=== PATIENT | female | born 1950 | race Caucasian/White ===

== ENCOUNTER 2017-08-27 10:06 | Day surgery (SDC) | payer MEDICARE, BC ==
[~2017-08-27] VITALS: Ht 154.9 cm; Wt 63.0 kg
[2017-08-27] VITALS (7 sets, daily range): BP systolic 109–140; BP diastolic 64–85
[~2017-08-27 10:06] MED LIST: BENA5TAB2 PO; ceFAZolin inj. 2,000 MG in normal saline 100ml IV soln 100 ML IV ONE; famotidine 20mg tablet PO ONE; ringers solution, lacted 1,000 ML IV SCH
[2017-08-27] MEDS ORDERED: LIDOcaine 1% 30ml preserv. free vial ONE (10:19)
[2017-08-27] MEDS ORDERED: heparin 10,000 units/1 ML INJ ONE (10:19)
[2017-08-27] MEDS ORDERED: LIDOcaine 1% (10mg/ml) 2ml vial ONE (10:21)
[2017-08-27] MEDS ORDERED: midazolam 2 mg/2 ml injection ONE (11:08)
[2017-08-27] MEDS ORDERED: fentaNYL/PF 50MCG/1 ML 2ML syringe ONE (11:08)
[2017-08-27] MEDS ORDERED: propofol inj 20 ML IV ONE (11:10)
[2017-08-27] MEDS ORDERED: LIDOcaine 1%/PF (10mg/ml) 5ml vial ONE (11:10)
[2017-08-27] MEDS ORDERED: sevoflurane 250ml liquid IH ONE (11:15)
[2017-08-27 11:21] LABS: ISTAT CREATININE 5.3 mg/dL (0.6-1.1); ISTAT HGB 13.3 g/dl (12.0-16.0); ISTAT IONIZED CALCIUM 1.11 mmol/L (1.03-1.32); ISTAT K 4.1 mmol/L (3.5-5.1); POC BUN/CREATININE RATIO 6.2 (6.6-38.0)
[2017-08-27] MEDS ORDERED: ringers solution, lacted 1,000 ML IV ONE (11:36)
[2017-08-27] MEDS ORDERED: labetalol 20mg/4ml (5mg/ml) syringe IV PRN (11:40)
[2017-08-27] MEDS ORDERED: ondansetron/PF 4mg/2ml inj IV PRN (11:40)
[2017-08-27] MEDS ORDERED: meperidine/PF 50mg/ml syringe IV ONE (11:40)
[2017-08-27] MEDS ORDERED: hydrALAZINE 20mg/ml inj. IV PRN (11:40)
[2017-08-27] MEDS ORDERED: fentaNYL/PF 50MCG/1 ML 2ML syringe IV ONE ×2 (11:40)
[2017-08-27] MEDS ORDERED: meperidine/PF 50mg/ml syringe IV PRN ×2 (11:40)
[2017-08-27] MEDS ORDERED: ondansetron/PF 4mg/2ml inj ONE (11:43)
[2017-08-27] MEDS ORDERED: CHOL500044 PO (11:52)
[2017-08-27] MEDS ORDERED: PHO667C PO (11:52)
== END 2017-08-27 12:46 | disposition home or self-care (01) ==
LOC: PAS 10:06
PROVIDERS: ATTEND Surgery
DX: T82.590A Other mechanical complication of surgically created arteriovenous fistula, initial encounter (principal); I12.0 Hypertensive chronic kidney disease with stage 5 chronic kidney disease or end stage renal disease; N18.6 End stage renal disease; Z90.49 Acquired absence of other specified parts of digestive tract; Z93.3 Colostomy status; Z88.5 Allergy status to narcotic agent; Z98.890 Other specified postprocedural states; Z99.2 Dependence on renal dialysis; Z79.899 Other long term (current) drug therapy
CPT/HCPCS: 37607; 80047; 93005; J0690; J1644; J2001; J2250; J2405; J2704; J3010; J3490; J7030; J7120; A7000

== ENCOUNTER 2018-04-23 17:45 | Inpatient (IN) | payer MEDICARE, BC ==
[~2018-04-23] VITALS: Ht 165.1 cm; Wt 63.1 kg
[~2018-04-23 17:45] MED LIST changes: -BENA5TAB2 PO; +BENA5TAB7 PO; +CHOL500044 PO; +PHO667C PO; -ceFAZolin inj. 2,000 MG in normal saline 100ml IV soln 100 ML IV ONE; -famotidine 20mg tablet PO ONE; +oseltamivir 30mg capsule PO ONE; -ringers solution, lacted 1,000 ML IV SCH
[2018-04-23] MEDS ORDERED: normal saline 1000ML IV soln IV ONE (18:35)
[2018-04-23 18:46] LABS: BASOPHILS % (AUTO) 0.2 % (0-1); HEMOGLOBIN 9.5 g/dl (12.0-16.0); LYMPHOCYTES # (AUTO) 0.3 X10'3 (1.1-4.8)
[2018-04-23] MEDS ORDERED: acetaminophen 325mg tablet PO STA ×2 (18:54→20:14)
[2018-04-23] MEDS ORDERED: azithromycin/NS 500mg/250ml 250 ML IV ONE ×2 (18:55→20:30)
[2018-04-23] MEDS ORDERED: ipratropium/albuterol 3ml nebule NEB ONE (18:55)
[2018-04-23] MEDS ORDERED: CefTRIAXone 2gm/D5W 50ml 50 ML IV ONE ×2 (18:55→20:30)
[2018-04-23 18:59] LABS: ALANINE AMINOTRANSFERASE 30 U/L (12-78); ALBUMIN 2.9 G/DL (3.4-5.0); ALBUMIN/GLOBULIN RATIO 0.8 (1.1-1.5); ALKALINE PHOSPHATASE 59 IU/L (46-116); ANION GAP 10 (8-16); ASPARTATE AMINO TRANSFERASE 20 U/L (10-37); BILIRUBIN,TOTAL 0.7 MG/DL (0.1-1.0); BLOOD UREA NITROGEN 16 MG/DL (7-18); BUN/CREATININE RATIO 3.8 (6.6-38.0); CHLORIDE 100 MMOL/L (99-107); CREATININE 4.18 MG/DL (0.40-0.90); GLUCOSE 124 MG/DL (70-104); POTASSIUM 3.5 MMOL/L (3.5-5.1); SODIUM 142 MMOL/L (135-145); TOTAL PROTEIN 6.7 G/DL (6.4-8.2); eGFR 11 ML/MIN
[2018-04-23 19:16] LABS: EOSINOPHILS % (AUTO) 0.1 % (0-6); HEMATOCRIT 28.7 % (35.0-45.0); LYMPHOCYTES % (AUTO) 6.8 % (21-51); MEAN CORPUSCULAR HEMOGLOBIN 32.3 PG (27.0-31.0); MEAN CORPUSCULAR HGB CONC 33.1 % (33.0-36.5); MEAN CORPUSCULAR VOLUME 97.7 FL (78-98); MONOCYTES # (AUTO) 0.4 X10'3 (0-0.9); MONOCYTES % (AUTO) 8.5 % (2-12); NEUTROPHILS # (AUTO) 4.2 X10'3 (1.8-7.7); NEUTROPHILS % (AUTO) 84.4 % (42-75); PLATELET COUNT 100 X10'3 (140-440); RED BLOOD COUNT 2.93 X10'6 (4.20-5.60); RED CELL DISTRIBUTION WIDTH 14.6 % (11.5-14.5); WHITE BLOOD COUNT 4.9 X10'3 (4.5-11.0)
[2018-04-23] MEDS ORDERED: ondansetron/PF 4mg/2ml inj IV ONE (20:15)
[2018-04-23] MEDS ORDERED: oseltamivir phos 75mg capsule PO ONE (20:30)
[2018-04-23] MEDS ORDERED: levoFLOXACIN-Levaquin 750MG/D5 150 ML IV ONE (20:35)
[2018-04-23] MEDS ORDERED: vancomycin/NS 1 GM ADD-VANTAGE 250 ML IV ONE (20:35)
[2018-04-23] MEDS ORDERED: RANI150T8 PO (22:09)
--- NOTE | 2018-04-23 22:14 | NUR ---
pt given sandwhich, jello, applesauce and water. She is requesting to take her Phoslo as she normally does with meals. advised pt to wait and we will address her MAR and given her meds from pharmacy. PA aware and entering meds now.
[2018-04-23] MEDS ORDERED: acetaminophen 650mg rectal suppository RC PRN (22:20)
[2018-04-23] MEDS ORDERED: ondansetron/PF 4mg/2ml inj IV PRN (22:20)
[2018-04-23] MEDS ORDERED: acetaminophen 325mg tablet PO PRN ×2 (22:20)
[2018-04-23] MEDS ORDERED: ipratropium/albuterol 3ml nebule NEB PRN (22:20)
[2018-04-23] MEDS: calcium acetate 667mg (PhosLO) capsule PO SCH (22:21)
[2018-04-23] MEDS ORDERED: oseltamivir 30mg capsule PO SCH (22:40)
[2018-04-23 22:55] VITALS: BP 100/53
[2018-04-24 06:00] VITALS: BP 89/49
--- NOTE | 2018-04-24 06:30 | NUR ---
I have received patient report from Candice TESFAYE
--- NOTE | 2018-04-24 06:45 | NUR ---
Problems reprioritized. Patient report given, questions answered & plan of care reviewed with Suzanna TESFAYE. Patient resting putting oxygen back on.
[2018-04-24] MEDS: famotidine 20mg tablet PO SCH ×2 (07:20→19:05)
[2018-04-24] MEDS: calcium acetate 667mg (PhosLO) capsule PO SCH ×5 (07:20→22:20)
[2018-04-24] MEDS: docusate sod 100mg capsule PO SCH ×2 (07:20→19:05)
[2018-04-24] MEDS: pantoprazole 40mg Tablet.DR PO SCH (07:20)
[2018-04-24 07:26] LABS: BASOPHILS % (AUTO) 0.2 % (0-1); EOSINOPHILS % (AUTO) 0.7 % (0-6); HEMOGLOBIN 8.9 g/dl (12.0-16.0); LYMPHOCYTES # (AUTO) 0.7 X10'3 (1.1-4.8); LYMPHOCYTES % (AUTO) 12.9 % (21-51); MEAN CORPUSCULAR HEMOGLOBIN 31.3 PG (27.0-31.0); MEAN CORPUSCULAR HGB CONC 31.9 % (33.0-36.5); MEAN CORPUSCULAR VOLUME 98.1 FL (78-98); MONOCYTES # (AUTO) 0.5 X10'3 (0-0.9); MONOCYTES % (AUTO) 8.7 % (2-12); NEUTROPHILS # (AUTO) 4.2 X10'3 (1.8-7.7); NEUTROPHILS % (AUTO) 77.5 % (42-75); PLATELET COUNT 92 X10'3 (140-440); RED BLOOD COUNT 2.85 X10'6 (4.20-5.60); RED CELL DISTRIBUTION WIDTH 14.8 % (11.5-14.5); WHITE BLOOD COUNT 5.5 X10'3 (4.5-11.0)
[2018-04-24 07:54] LABS: INR 1.1 INR; PARTIAL THROMBOPLASTIN TIME 33 SECONDS (22-32); PROTHROMBIN TIME 11.4 SECONDS (9.0-12.0)
[2018-04-24] MEDS: lisinopril 5mg tablet PO SCH (08:00)
[2018-04-24 08:04] LABS: ALANINE AMINOTRANSFERASE 24 U/L (12-78); ALBUMIN 2.5 G/DL (3.4-5.0); ALBUMIN/GLOBULIN RATIO 0.7 (1.1-1.5); ALKALINE PHOSPHATASE 56 IU/L (46-116); ANION GAP 11 (8-16); ASPARTATE AMINO TRANSFERASE 17 U/L (10-37); BILIRUBIN,TOTAL 0.3 MG/DL (0.1-1.0); BLOOD UREA NITROGEN 29 MG/DL (7-18); BUN/CREATININE RATIO 5.5 (6.6-38.0); CALCIUM 7.9 MG/DL (8.5-10.1); CHLORIDE 104 MMOL/L (99-107); CREATININE 5.27 MG/DL (0.40-0.90); GLUCOSE 97 MG/DL (70-104); MAGNESIUM 1.6 MG/DL (1.5-2.4); PHOSPHORUS 5.3 MG/DL (2.3-4.5); SODIUM 142 MMOL/L (135-145); TOTAL CARBON DIOXIDE 26.6 MMOL/L (24-32); eGFR 8 ML/MIN
[2018-04-24 10:00] VITALS: BP 117/46
[2018-04-24] MEDS ORDERED: normal saline 1000ml 250 ML IV PRN (11:51)
[2018-04-24] MEDS ORDERED: heparin 1,000unit/ml 10ml vial 10 ML IV ONE (11:51)
[2018-04-24] MEDS ORDERED: heparin 1,000 units/ml 10ml inj HE ONE (11:55)
--- NOTE | 2018-04-24 12:06 | NUR ---
I spoke with Dr. Radha kamaraing heparin, he said okay to give with platelet 92,000
[2018-04-24] MEDS: heparin, porcine 5000 units/ml vial SQ SCH ×2 (12:13→19:05)
[2018-04-24 18:00] VITALS: BP 129/82
--- NOTE | 2018-04-24 18:00 | NUR ---
Patient in room [facility]TH[facility] 4017. I have received report from MERA FROST and had the opportunity to ask questions and assume patient care.
--- NOTE | 2018-04-24 18:08 | NUR ---
I gave patient report to Mariam Vazquez RN
[2018-04-24 22:00] VITALS: BP 124/71
[2018-04-25 06:00] VITALS: BP 129/48
--- NOTE | 2018-04-25 06:24 | NUR ---
Problems reprioritized. Patient report given, questions answered & plan of care reviewed with MERA LARIOS.
[2018-04-25 07:08] LABS: BASOPHILS % (AUTO) 0.3 % (0-1); EOSINOPHILS # (AUTO) 0.1 X10'3 (0-0.9); EOSINOPHILS % (AUTO) 2.7 % (0-6); HEMATOCRIT 27.9 % (35.0-45.0); HEMOGLOBIN 9.4 g/dl (12.0-16.0); LYMPHOCYTES % (AUTO) 28.6 % (21-51); MEAN CORPUSCULAR HEMOGLOBIN 33.2 PG (27.0-31.0); MEAN CORPUSCULAR HGB CONC 33.6 % (33.0-36.5); MEAN CORPUSCULAR VOLUME 98.8 FL (78-98); MEAN PLATELET VOLUME 8.5 FL (7.4-10.4); MONOCYTES # (AUTO) 0.3 X10'3 (0-0.9); MONOCYTES % (AUTO) 8.5 % (2-12); NEUTROPHILS # (AUTO) 2.1 X10'3 (1.8-7.7); NEUTROPHILS % (AUTO) 59.9 % (42-75); PLATELET COUNT 83 X10'3 (140-440); RED BLOOD COUNT 2.83 X10'6 (4.20-5.60); RED CELL DISTRIBUTION WIDTH 13.9 % (11.5-14.5); WHITE BLOOD COUNT 3.5 X10'3 (4.5-11.0)
[2018-04-25 07:11] LABS: ALANINE AMINOTRANSFERASE 19 U/L (12-78); ALBUMIN 2.3 G/DL (3.4-5.0); ALBUMIN/GLOBULIN RATIO 0.7 (1.1-1.5); ALKALINE PHOSPHATASE 47 IU/L (46-116); ANION GAP 12 (8-16); ASPARTATE AMINO TRANSFERASE 16 U/L (10-37); BILIRUBIN,TOTAL 0.3 MG/DL (0.1-1.0); BLOOD UREA NITROGEN 45 MG/DL (7-18); CALCIUM 8.8 MG/DL (8.5-10.1); CHLORIDE 107 MMOL/L (99-107); CREATININE 7.44 MG/DL (0.40-0.90); GLUCOSE 87 MG/DL (70-104); MAGNESIUM 1.7 MG/DL (1.5-2.4); PHOSPHORUS 5.7 MG/DL (2.3-4.5); POTASSIUM 4.4 MMOL/L (3.5-5.1); SODIUM 144 MMOL/L (135-145); TOTAL CARBON DIOXIDE 25.2 MMOL/L (24-32); TOTAL PROTEIN 5.8 G/DL (6.4-8.2); eGFR 5 ML/MIN
[2018-04-25] MEDS: lisinopril 5mg tablet PO SCH (08:00)
[2018-04-25] MEDS ORDERED: levoFLOXACIN-Levaquin 250mg/D5 50 ML IV SCH (08:00)
[2018-04-25] MEDS: heparin, porcine 5000 units/ml vial SQ SCH (08:00)
[2018-04-25] MEDS: calcium acetate 667mg (PhosLO) capsule PO SCH ×3 (08:13→18:18)
[2018-04-25] MEDS: pantoprazole 40mg Tablet.DR PO SCH (08:14)
[2018-04-25] MEDS: famotidine 20mg tablet PO SCH (08:14)
[2018-04-25] MEDS: docusate sod 100mg capsule PO SCH (08:14)
[2018-04-25] MEDS ORDERED: LIDOcaine 1% (10mg/ml) 2ml vial SQ ONE (08:30)
[2018-04-25 10:00] VITALS: BP 109/63
[2018-04-25] MEDS ORDERED: LEVO250T58 PO (15:05)
[2018-04-25] MEDS ORDERED: OSEL30CA PO (15:05)
--- NOTE | 2018-04-25 15:05 | NUR ---
Report given to Sherry Cevallos RN.
--- NOTE | 2018-04-25 15:10 | NUR ---
Patient in room [facility]TH[facility] 4017. I have received report from say Restrepo RN and had the opportunity to ask questions and assume patient care.
--- NOTE | 2018-04-25 18:28 | NUR ---
Problems reprioritized. Patient report given, questions answered & plan of care reviewed with Cat deal RN.
--- NOTE | 2018-04-25 19:20 | NUR ---
I escorted patient out of hospital via w/c and her daughter and assisted her to the vehicle without issues, she was finished with dialysis at 1830. She was given her paperwork and information given her to about new prescriptions.
[2018-04-25] MEDS ORDERED: lactulose 20gm/30ml cup PO PRN (22:20)
== END 2018-04-25 19:20 | disposition home or self-care (01) | DRG 871 ==
LOC: ER 17:46 → ORTHO 4S 22:16 → CMPBEDREQ 23:51
PROVIDERS: ADMIT Internal Medicine Critical Care Medicine; ATTEND Internal Medicine Critical Care Medicine
PROC: 5A1D70Z Performance of Urinary Filtration, Intermittent, Less than 6 Hours Per Day (ICD-10-PCS; principal; 2018-04-25)
DX: A41.9 Sepsis, unspecified organism (principal); N18.6 End stage renal disease; J18.1 Lobar pneumonia, unspecified organism; J09.X1 Influenza due to identified novel influenza A virus with pneumonia; I12.0 Hypertensive chronic kidney disease with stage 5 chronic kidney disease or end stage renal disease; Q61.3 Polycystic kidney, unspecified; Z99.2 Dependence on renal dialysis; Z88.5 Allergy status to narcotic agent; Z79.899 Other long term (current) drug therapy
CPT/HCPCS: 36415; 71046; 80053; 83605; 83735; 84100; 84145; 85025; 85610; 85730; 87040; 87070; 87502; 87503; 93005; 94640; 94760; 96365; 96366; 96368; 96375; 97161; 99285; G0257; G0378; J0456; J0696; J1644; J1956; J2405; J3490

== ENCOUNTER 2018-10-03 13:03 | Emergency (ER) | payer MEDICARE, BC ==
[~2018-10-03] VITALS: Ht 156.2 cm; Wt 67.0 kg
[~2018-10-03 13:03] MED LIST changes: -CHOL500044 PO; +OSEL30CA PO; +RANI150T8 PO; -oseltamivir 30mg capsule PO ONE
[2018-10-03 16:48] VITALS: BP 121/76
== END 2018-10-03 16:51 | disposition home or self-care (01) ==
LOC: ER 13:03
DX: T82.898A Other specified complication of vascular prosthetic devices, implants and grafts, initial encounter (principal); I12.9 Hypertensive chronic kidney disease with stage 1 through stage 4 chronic kidney disease, or unspecified chronic kidney disease; N18.9 Chronic kidney disease, unspecified; Z99.2 Dependence on renal dialysis; Z88.5 Allergy status to narcotic agent; Z79.899 Other long term (current) drug therapy; Y92.89 Other specified places as the place of occurrence of the external cause
CPT/HCPCS: 93931; 99285

== ENCOUNTER 2018-12-23 13:55 | Day surgery (SDC) | payer MEDICARE, BC ==
[~2018-12-23] VITALS: Ht 157.5 cm; Wt 65.9 kg
[2018-12-23] VITALS (8 sets, daily range): BP systolic 127–149; BP diastolic 68–92
[~2018-12-23 13:55] MED LIST changes: -BENA5TAB7 PO; +MAGN64TA10 PO; +MYCO250C46 PO; -OSEL30CA PO; -PHO667C PO; +PRED5TAB49 PO; +SODI650T29 PO; +TACR1CAP28 PO
[2018-12-23] MEDS ORDERED: meperidine/PF 100mg/ml syringe ONE (13:59)
[2018-12-23] MEDS ORDERED: fentaNYL/PF 50MCG/1 ML 2ML syringe ONE (13:59)
[2018-12-23] MEDS ORDERED: diphenhydrAMINE 50 mg/ml inj ONE (14:00)
[2018-12-23] MEDS ORDERED: LIDOcaine Viscous 15ml cup ONE (14:00)
[2018-12-23] MEDS ORDERED: MIDAZolam 5mg/5ml vial ONE (14:00)
[2018-12-23] MEDS ORDERED: iohexol 300 MG/1 ML 50ml polymer ONE (14:01)
[2018-12-23] MEDS ORDERED: glucagon, human recombinant 1mg kit ONE (14:01)
[2018-12-23] MEDS ORDERED: levoFLOXACIN-Levaquin 500mg/D5 100 ML IV ONE (14:07)
== END 2018-12-23 16:49 | disposition home or self-care (01) ==
LOC: GI LAB 13:55
PROVIDERS: ATTEND Internal Medicine Gastroenterology
DX: K80.50 Calculus of bile duct without cholangitis or cholecystitis without obstruction (principal); K83.8 Other specified diseases of biliary tract
CPT/HCPCS: 43264; 43274; 99153; C1769; G0500; J1200; J1610; J1956; J2175; J2250; J3010; J7040; Q9967; 43262; 99152; A4620

== ENCOUNTER 2019-08-20 09:55 | Day surgery (SDC) | payer MEDICARE, BC ==
[~2019-08-20 09:55] MED LIST changes: +APIX5TAB3 PO; +FOLI1TAB34 PO; -MAGN64TA10 PO; +PRE5T PO; -PRED5TAB49 PO; -RANI150T8 PO; -SODI650T29 PO; +SULF1TAB49 PO; +TACR1CAP PO; +TACR1CAP24 PO; -TACR1CAP28 PO
[2019-08-20] MEDS ORDERED: LIDOcaine 2% 5ml jelly ONE (10:18)
== END 2019-08-20 11:22 | disposition home or self-care (01) ==
LOC: WOUND CARE 09:55
PROVIDERS: ATTEND Nurse Practitioner
DX: T81.32XA Disruption of internal operation (surgical) wound, not elsewhere classified, initial encounter (principal); L98.492 Non-pressure chronic ulcer of skin of other sites with fat layer exposed; N18.6 End stage renal disease; D63.1 Anemia in chronic kidney disease; K81.0 Acute cholecystitis; K82.A1 Gangrene of gallbladder in cholecystitis; K21.9 Gastro-esophageal reflux disease without esophagitis; E87.1 Hypo-osmolality and hyponatremia; Q61.3 Polycystic kidney, unspecified; Z90.710 Acquired absence of both cervix and uterus; Z94.0 Kidney transplant status; Z79.01 Long term (current) use of anticoagulants; Z93.3 Colostomy status; Z99.2 Dependence on renal dialysis; Z79.899 Other long term (current) drug therapy; Y83.8 Other surgical procedures as the cause of abnormal reaction of the patient, or of later complication, without mention of misadventure at the time of the procedure; Y92.89 Other specified places as the place of occurrence of the external cause
CPT/HCPCS: 97597

== ENCOUNTER 2019-08-26 10:30 | Day surgery (SDC) | payer MEDICARE, BC ==
[~2019-08-26 10:30] MED LIST changes: -SULF1TAB49 PO
[2019-08-26] MEDS ORDERED: LIDOcaine 2% 5ml jelly ONE (10:48)
== END 2019-08-26 11:46 | disposition home or self-care (01) ==
LOC: WOUND CARE 10:30
PROVIDERS: ATTEND Nurse Practitioner
DX: T81.32XD Disruption of internal operation (surgical) wound, not elsewhere classified, subsequent encounter (principal); L98.492 Non-pressure chronic ulcer of skin of other sites with fat layer exposed; N18.6 End stage renal disease; D63.1 Anemia in chronic kidney disease; K81.0 Acute cholecystitis; K82.A1 Gangrene of gallbladder in cholecystitis; K21.9 Gastro-esophageal reflux disease without esophagitis; E87.1 Hypo-osmolality and hyponatremia; Q61.3 Polycystic kidney, unspecified; Z90.710 Acquired absence of both cervix and uterus; Z94.0 Kidney transplant status; Z79.01 Long term (current) use of anticoagulants; Z93.3 Colostomy status; Z99.2 Dependence on renal dialysis; Z79.899 Other long term (current) drug therapy; Y83.8 Other surgical procedures as the cause of abnormal reaction of the patient, or of later complication, without mention of misadventure at the time of the procedure
CPT/HCPCS: 97597

== ENCOUNTER 2019-09-02 10:28 | Day surgery (SDC) | payer MEDICARE, BC ==
[2019-09-02] MEDS ORDERED: LIDOcaine 2% 5ml jelly ONE (10:50)
== END 2019-09-02 11:31 | disposition home or self-care (01) ==
LOC: WOUND CARE 10:28
PROVIDERS: ATTEND Nurse Practitioner
DX: T81.32XD Disruption of internal operation (surgical) wound, not elsewhere classified, subsequent encounter (principal); T83.728 Exposure of other implanted mesh into organ or tissue; L98.492 Non-pressure chronic ulcer of skin of other sites with fat layer exposed; N18.6 End stage renal disease; D63.1 Anemia in chronic kidney disease; K81.0 Acute cholecystitis; K82.A1 Gangrene of gallbladder in cholecystitis; K21.9 Gastro-esophageal reflux disease without esophagitis; E87.1 Hypo-osmolality and hyponatremia; Q61.3 Polycystic kidney, unspecified; Z90.710 Acquired absence of both cervix and uterus; Z94.0 Kidney transplant status; Z79.01 Long term (current) use of anticoagulants; Z93.3 Colostomy status; Z99.2 Dependence on renal dialysis; Z79.899 Other long term (current) drug therapy; Y83.8 Other surgical procedures as the cause of abnormal reaction of the patient, or of later complication, without mention of misadventure at the time of the procedure; Y83.2 Surgical operation with anastomosis, bypass or graft as the cause of abnormal reaction of the patient, or of later complication, without mention of misadventure at the time of the procedure
CPT/HCPCS: 97597; 97598

== ENCOUNTER 2019-09-09 10:30 | Day surgery (SDC) | payer MEDICARE, BC ==
[2019-09-09] MEDS ORDERED: LIDOcaine 2% 5ml jelly ONE (10:58)
== END 2019-09-09 11:53 | disposition home or self-care (01) ==
LOC: WOUND CARE 10:30
PROVIDERS: ATTEND Nurse Practitioner
DX: T81.32XD Disruption of internal operation (surgical) wound, not elsewhere classified, subsequent encounter (principal); T83.728 Exposure of other implanted mesh into organ or tissue; L98.492 Non-pressure chronic ulcer of skin of other sites with fat layer exposed; N18.6 End stage renal disease; D63.1 Anemia in chronic kidney disease; K81.0 Acute cholecystitis; K82.A1 Gangrene of gallbladder in cholecystitis; K21.9 Gastro-esophageal reflux disease without esophagitis; E87.1 Hypo-osmolality and hyponatremia; Q61.3 Polycystic kidney, unspecified; Z90.710 Acquired absence of both cervix and uterus; Z94.0 Kidney transplant status; Z79.01 Long term (current) use of anticoagulants; Z93.3 Colostomy status; Z99.2 Dependence on renal dialysis; Z79.899 Other long term (current) drug therapy; Y83.8 Other surgical procedures as the cause of abnormal reaction of the patient, or of later complication, without mention of misadventure at the time of the procedure; Y83.2 Surgical operation with anastomosis, bypass or graft as the cause of abnormal reaction of the patient, or of later complication, without mention of misadventure at the time of the procedure
CPT/HCPCS: G0463

== ENCOUNTER 2019-09-16 08:13 | Day surgery (SDC) | payer MEDICARE, BC ==
[2019-09-16] MEDS ORDERED: LIDOcaine 2% 5ml jelly ONE (08:51)
== END 2019-09-16 09:13 | disposition home or self-care (01) ==
LOC: WOUND CARE 08:13
PROVIDERS: ATTEND Nurse Practitioner
DX: T81.32XD Disruption of internal operation (surgical) wound, not elsewhere classified, subsequent encounter (principal); T83.728 Exposure of other implanted mesh into organ or tissue; L98.492 Non-pressure chronic ulcer of skin of other sites with fat layer exposed; N18.6 End stage renal disease; D63.1 Anemia in chronic kidney disease; K81.0 Acute cholecystitis; K82.A1 Gangrene of gallbladder in cholecystitis; K21.9 Gastro-esophageal reflux disease without esophagitis; E87.1 Hypo-osmolality and hyponatremia; Q61.3 Polycystic kidney, unspecified; Z90.710 Acquired absence of both cervix and uterus; Z94.0 Kidney transplant status; Z79.01 Long term (current) use of anticoagulants; Z93.3 Colostomy status; Z99.2 Dependence on renal dialysis; Z79.899 Other long term (current) drug therapy; Y83.8 Other surgical procedures as the cause of abnormal reaction of the patient, or of later complication, without mention of misadventure at the time of the procedure; Y83.2 Surgical operation with anastomosis, bypass or graft as the cause of abnormal reaction of the patient, or of later complication, without mention of misadventure at the time of the procedure
CPT/HCPCS: 97597

== ENCOUNTER 2019-09-23 09:00 | Day surgery (SDC) | payer MEDICARE, BC | END 2019-09-23 10:44 | disposition home or self-care (01) | LOC: WOUND CARE 09:00 | PROVIDERS: ATTEND Nurse Practitioner | DX: T81.32XD Disruption of internal operation (surgical) wound, not elsewhere classified, subsequent encounter (principal); T83.728 Exposure of other implanted mesh into organ or tissue; L98.492 Non-pressure chronic ulcer of skin of other sites with fat layer exposed; N18.6 End stage renal disease; D63.1 Anemia in chronic kidney disease; K81.0 Acute cholecystitis; K82.A1 Gangrene of gallbladder in cholecystitis; K21.9 Gastro-esophageal reflux disease without esophagitis; E78.1 Pure hyperglyceridemia; Q61.3 Polycystic kidney, unspecified; Z90.710 Acquired absence of both cervix and uterus; Z94.0 Kidney transplant status | CPT/HCPCS: 97597 ==

== ENCOUNTER 2019-09-30 09:33 | Day surgery (SDC) | payer MEDICARE, BC ==
[2019-09-30] MEDS ORDERED: LIDOcaine 2% 5ml jelly ONE (09:46)
== END 2019-09-30 09:57 | disposition home or self-care (01) ==
LOC: WOUND CARE 09:33
PROVIDERS: ATTEND Nurse Practitioner
DX: T81.32XD Disruption of internal operation (surgical) wound, not elsewhere classified, subsequent encounter (principal); T83.728 Exposure of other implanted mesh into organ or tissue; L98.492 Non-pressure chronic ulcer of skin of other sites with fat layer exposed; N18.6 End stage renal disease; D63.1 Anemia in chronic kidney disease; K82.A1 Gangrene of gallbladder in cholecystitis; K21.9 Gastro-esophageal reflux disease without esophagitis; E87.1 Hypo-osmolality and hyponatremia; Q61.3 Polycystic kidney, unspecified; Z90.710 Acquired absence of both cervix and uterus; Z94.0 Kidney transplant status; Z79.01 Long term (current) use of anticoagulants; Z93.3 Colostomy status; Z99.2 Dependence on renal dialysis; Z79.899 Other long term (current) drug therapy; Y83.8 Other surgical procedures as the cause of abnormal reaction of the patient, or of later complication, without mention of misadventure at the time of the procedure; Y83.2 Surgical operation with anastomosis, bypass or graft as the cause of abnormal reaction of the patient, or of later complication, without mention of misadventure at the time of the procedure
CPT/HCPCS: 97597

== ENCOUNTER 2019-10-07 13:15 | Day surgery (SDC) | payer MEDICARE, BC | END 2019-10-07 14:42 | disposition home or self-care (01) | LOC: WOUND CARE 13:15 | PROVIDERS: ATTEND Nurse Practitioner | DX: T81.32XD Disruption of internal operation (surgical) wound, not elsewhere classified, subsequent encounter (principal); T83.728 Exposure of other implanted mesh into organ or tissue; L98.492 Non-pressure chronic ulcer of skin of other sites with fat layer exposed; N18.6 End stage renal disease; D63.1 Anemia in chronic kidney disease; K82.A1 Gangrene of gallbladder in cholecystitis; K21.9 Gastro-esophageal reflux disease without esophagitis; E87.1 Hypo-osmolality and hyponatremia; Q61.3 Polycystic kidney, unspecified; Z90.710 Acquired absence of both cervix and uterus; Z94.0 Kidney transplant status; Z79.01 Long term (current) use of anticoagulants; Z93.3 Colostomy status; Z99.2 Dependence on renal dialysis; Z79.899 Other long term (current) drug therapy; Y83.8 Other surgical procedures as the cause of abnormal reaction of the patient, or of later complication, without mention of misadventure at the time of the procedure; Y83.2 Surgical operation with anastomosis, bypass or graft as the cause of abnormal reaction of the patient, or of later complication, without mention of misadventure at the time of the procedure | CPT/HCPCS: 97597 ==

== ENCOUNTER 2019-10-14 10:30 | Day surgery (SDC) | payer MEDICARE, BC ==
[2019-10-14] MEDS ORDERED: LIDOcaine 2% 5ml jelly ONE (10:42)
== END 2019-10-14 11:36 | disposition home or self-care (01) ==
LOC: WOUND CARE 10:30
PROVIDERS: ATTEND Nurse Practitioner
DX: T81.32XD Disruption of internal operation (surgical) wound, not elsewhere classified, subsequent encounter (principal); T83.728 Exposure of other implanted mesh into organ or tissue; L98.492 Non-pressure chronic ulcer of skin of other sites with fat layer exposed; N18.6 End stage renal disease; D63.1 Anemia in chronic kidney disease; K82.A1 Gangrene of gallbladder in cholecystitis; K21.9 Gastro-esophageal reflux disease without esophagitis; E87.1 Hypo-osmolality and hyponatremia; Q61.3 Polycystic kidney, unspecified; Z90.710 Acquired absence of both cervix and uterus; Z94.0 Kidney transplant status; Z79.01 Long term (current) use of anticoagulants; Z93.3 Colostomy status; Z99.2 Dependence on renal dialysis; Z79.899 Other long term (current) drug therapy; Y83.8 Other surgical procedures as the cause of abnormal reaction of the patient, or of later complication, without mention of misadventure at the time of the procedure; Y83.2 Surgical operation with anastomosis, bypass or graft as the cause of abnormal reaction of the patient, or of later complication, without mention of misadventure at the time of the procedure
CPT/HCPCS: 97597

== ENCOUNTER 2019-10-21 10:32 | Day surgery (SDC) | payer MEDICARE, BC ==
[2019-10-21] MEDS ORDERED: LIDOcaine 2% 5ml jelly ONE (11:05)
== END 2019-10-21 11:53 | disposition home or self-care (01) ==
LOC: WOUND CARE 10:32
PROVIDERS: ATTEND Nurse Practitioner
DX: T81.32XD Disruption of internal operation (surgical) wound, not elsewhere classified, subsequent encounter (principal); T83.728 Exposure of other implanted mesh into organ or tissue; L98.492 Non-pressure chronic ulcer of skin of other sites with fat layer exposed; I12.0 Hypertensive chronic kidney disease with stage 5 chronic kidney disease or end stage renal disease; N18.6 End stage renal disease; D63.1 Anemia in chronic kidney disease; K80.80 Other cholelithiasis without obstruction; K82.A1 Gangrene of gallbladder in cholecystitis; K21.9 Gastro-esophageal reflux disease without esophagitis; E87.1 Hypo-osmolality and hyponatremia; Q61.3 Polycystic kidney, unspecified; Z90.710 Acquired absence of both cervix and uterus; Z94.0 Kidney transplant status; Z79.01 Long term (current) use of anticoagulants; Z93.3 Colostomy status; Z99.2 Dependence on renal dialysis; Z79.899 Other long term (current) drug therapy; Y83.8 Other surgical procedures as the cause of abnormal reaction of the patient, or of later complication, without mention of misadventure at the time of the procedure; Y83.2 Surgical operation with anastomosis, bypass or graft as the cause of abnormal reaction of the patient, or of later complication, without mention of misadventure at the time of the procedure
CPT/HCPCS: 97597

== ENCOUNTER 2019-10-27 09:15 | Day surgery (SDC) | payer MEDICARE, BC ==
[2019-10-27] MEDS ORDERED: LIDOcaine 4% (40 mg/ml) topical solution 50ml ONE (09:41)
[2019-10-27] MEDS ORDERED: LIDOcaine 2% 5ml jelly ONE ×2 (09:42→10:26)
[2019-10-27] MEDS ORDERED: LIDOcaine 1% w/epiNEPHrine 1:200,000 30ml vial ONE (10:25)
== END 2019-10-27 10:41 | disposition home or self-care (01) ==
LOC: WOUND CARE 09:15
PROVIDERS: ATTEND Nurse Practitioner
DX: T81.32XD Disruption of internal operation (surgical) wound, not elsewhere classified, subsequent encounter (principal); T83.728 Exposure of other implanted mesh into organ or tissue; L98.492 Non-pressure chronic ulcer of skin of other sites with fat layer exposed; I12.0 Hypertensive chronic kidney disease with stage 5 chronic kidney disease or end stage renal disease; N18.6 End stage renal disease; D63.1 Anemia in chronic kidney disease; K80.80 Other cholelithiasis without obstruction; K82.A1 Gangrene of gallbladder in cholecystitis; K21.9 Gastro-esophageal reflux disease without esophagitis; E87.1 Hypo-osmolality and hyponatremia; Q61.3 Polycystic kidney, unspecified; Z90.710 Acquired absence of both cervix and uterus; Z94.0 Kidney transplant status; Z79.01 Long term (current) use of anticoagulants; Z93.3 Colostomy status; Z99.2 Dependence on renal dialysis; Z79.899 Other long term (current) drug therapy; Y83.8 Other surgical procedures as the cause of abnormal reaction of the patient, or of later complication, without mention of misadventure at the time of the procedure; Y83.2 Surgical operation with anastomosis, bypass or graft as the cause of abnormal reaction of the patient, or of later complication, without mention of misadventure at the time of the procedure
CPT/HCPCS: 97597

== ENCOUNTER 2019-11-04 09:48 | Day surgery (SDC) | payer MEDICARE, BC ==
[2019-11-04] MEDS ORDERED: LIDOcaine 2% 5ml jelly ONE (10:11)
== END 2019-11-04 10:28 | disposition home or self-care (01) ==
LOC: WOUND CARE 09:48
PROVIDERS: ATTEND Nurse Practitioner
DX: T81.32XD Disruption of internal operation (surgical) wound, not elsewhere classified, subsequent encounter (principal); T83.728 Exposure of other implanted mesh into organ or tissue; L98.492 Non-pressure chronic ulcer of skin of other sites with fat layer exposed; I12.0 Hypertensive chronic kidney disease with stage 5 chronic kidney disease or end stage renal disease; N18.6 End stage renal disease; D63.1 Anemia in chronic kidney disease; K80.80 Other cholelithiasis without obstruction; K82.A1 Gangrene of gallbladder in cholecystitis; K21.9 Gastro-esophageal reflux disease without esophagitis; E87.1 Hypo-osmolality and hyponatremia; Q61.3 Polycystic kidney, unspecified; Z90.710 Acquired absence of both cervix and uterus; Z94.0 Kidney transplant status; Z79.01 Long term (current) use of anticoagulants; Z93.3 Colostomy status; Z99.2 Dependence on renal dialysis; Z79.899 Other long term (current) drug therapy; Y83.8 Other surgical procedures as the cause of abnormal reaction of the patient, or of later complication, without mention of misadventure at the time of the procedure; Y83.2 Surgical operation with anastomosis, bypass or graft as the cause of abnormal reaction of the patient, or of later complication, without mention of misadventure at the time of the procedure
CPT/HCPCS: 97597

== ENCOUNTER 2019-11-12 09:45 | Day surgery (SDC) | payer MEDICARE, BC ==
[2019-11-12] MEDS ORDERED: LIDOcaine 2% 5ml jelly ONE (10:15)
== END 2019-11-12 10:47 | disposition home or self-care (01) ==
LOC: WOUND CARE 09:45
PROVIDERS: ATTEND Nurse Practitioner
DX: T81.32XD Disruption of internal operation (surgical) wound, not elsewhere classified, subsequent encounter (principal); T83.728 Exposure of other implanted mesh into organ or tissue; L98.492 Non-pressure chronic ulcer of skin of other sites with fat layer exposed; I12.0 Hypertensive chronic kidney disease with stage 5 chronic kidney disease or end stage renal disease; N18.6 End stage renal disease; D63.1 Anemia in chronic kidney disease; K80.80 Other cholelithiasis without obstruction; K82.A1 Gangrene of gallbladder in cholecystitis; K21.9 Gastro-esophageal reflux disease without esophagitis; E87.1 Hypo-osmolality and hyponatremia; Q61.3 Polycystic kidney, unspecified; Z90.710 Acquired absence of both cervix and uterus; Z94.0 Kidney transplant status; Z79.01 Long term (current) use of anticoagulants; Z93.3 Colostomy status; Z99.2 Dependence on renal dialysis; Z79.899 Other long term (current) drug therapy; Y83.8 Other surgical procedures as the cause of abnormal reaction of the patient, or of later complication, without mention of misadventure at the time of the procedure; Y83.2 Surgical operation with anastomosis, bypass or graft as the cause of abnormal reaction of the patient, or of later complication, without mention of misadventure at the time of the procedure
CPT/HCPCS: 97597

== ENCOUNTER 2019-11-18 09:43 | Day surgery (SDC) | payer MEDICARE, BC ==
[2019-11-18] MEDS ORDERED: LIDOcaine 2% 5ml jelly ONE (10:14)
== END 2019-11-18 10:34 | disposition home or self-care (01) ==
LOC: WOUND CARE 09:43
PROVIDERS: ATTEND Nurse Practitioner
DX: T81.32XD Disruption of internal operation (surgical) wound, not elsewhere classified, subsequent encounter (principal); T83.728 Exposure of other implanted mesh into organ or tissue; L98.492 Non-pressure chronic ulcer of skin of other sites with fat layer exposed; I12.0 Hypertensive chronic kidney disease with stage 5 chronic kidney disease or end stage renal disease; N18.6 End stage renal disease; D63.1 Anemia in chronic kidney disease; K80.80 Other cholelithiasis without obstruction; K82.A1 Gangrene of gallbladder in cholecystitis; K21.9 Gastro-esophageal reflux disease without esophagitis; E87.1 Hypo-osmolality and hyponatremia; Q61.3 Polycystic kidney, unspecified; Z90.710 Acquired absence of both cervix and uterus; Z94.0 Kidney transplant status; Z79.01 Long term (current) use of anticoagulants; Z93.3 Colostomy status; Z99.2 Dependence on renal dialysis; Z79.899 Other long term (current) drug therapy; Y83.8 Other surgical procedures as the cause of abnormal reaction of the patient, or of later complication, without mention of misadventure at the time of the procedure; Y83.2 Surgical operation with anastomosis, bypass or graft as the cause of abnormal reaction of the patient, or of later complication, without mention of misadventure at the time of the procedure
CPT/HCPCS: 97597

== ENCOUNTER 2019-11-25 09:52 | Day surgery (SDC) | payer MEDICARE, BC ==
[2019-11-25] MEDS ORDERED: LIDOcaine 2% 5ml jelly ONE (10:39)
== END 2019-11-25 11:40 | disposition home or self-care (01) ==
LOC: WOUND CARE 09:52
PROVIDERS: ATTEND Nurse Practitioner
DX: T81.32XD Disruption of internal operation (surgical) wound, not elsewhere classified, subsequent encounter (principal); T83.728 Exposure of other implanted mesh into organ or tissue; L98.492 Non-pressure chronic ulcer of skin of other sites with fat layer exposed; I12.0 Hypertensive chronic kidney disease with stage 5 chronic kidney disease or end stage renal disease; N18.6 End stage renal disease; D63.1 Anemia in chronic kidney disease; K80.80 Other cholelithiasis without obstruction; K82.A1 Gangrene of gallbladder in cholecystitis; K21.9 Gastro-esophageal reflux disease without esophagitis; E87.1 Hypo-osmolality and hyponatremia; Q61.3 Polycystic kidney, unspecified; Z90.710 Acquired absence of both cervix and uterus; Z94.0 Kidney transplant status; Z79.01 Long term (current) use of anticoagulants; Z93.3 Colostomy status; Z99.2 Dependence on renal dialysis; Z79.899 Other long term (current) drug therapy; Y83.8 Other surgical procedures as the cause of abnormal reaction of the patient, or of later complication, without mention of misadventure at the time of the procedure; Y83.2 Surgical operation with anastomosis, bypass or graft as the cause of abnormal reaction of the patient, or of later complication, without mention of misadventure at the time of the procedure
CPT/HCPCS: 97597

== ENCOUNTER 2019-12-16 09:50 | Day surgery (SDC) | payer MEDICARE, BC ==
[2019-12-16] MEDS ORDERED: LIDOcaine 2% 5ml jelly ONE (10:20)
== END 2019-12-16 11:00 | disposition home or self-care (01) ==
LOC: WOUND CARE 09:50
PROVIDERS: ATTEND Nurse Practitioner
DX: T81.32XD Disruption of internal operation (surgical) wound, not elsewhere classified, subsequent encounter (principal); T83.728 Exposure of other implanted mesh into organ or tissue; L98.492 Non-pressure chronic ulcer of skin of other sites with fat layer exposed; I12.0 Hypertensive chronic kidney disease with stage 5 chronic kidney disease or end stage renal disease; N18.6 End stage renal disease; D63.1 Anemia in chronic kidney disease; K80.80 Other cholelithiasis without obstruction; K82.A1 Gangrene of gallbladder in cholecystitis; K21.9 Gastro-esophageal reflux disease without esophagitis; E87.1 Hypo-osmolality and hyponatremia; Q61.3 Polycystic kidney, unspecified; Z90.710 Acquired absence of both cervix and uterus; Z90.49 Acquired absence of other specified parts of digestive tract; Z94.0 Kidney transplant status; Z79.01 Long term (current) use of anticoagulants; Z93.3 Colostomy status; Z99.2 Dependence on renal dialysis; Z79.899 Other long term (current) drug therapy; Y83.8 Other surgical procedures as the cause of abnormal reaction of the patient, or of later complication, without mention of misadventure at the time of the procedure; Y83.2 Surgical operation with anastomosis, bypass or graft as the cause of abnormal reaction of the patient, or of later complication, without mention of misadventure at the time of the procedure
CPT/HCPCS: 97597

== ENCOUNTER 2019-12-23 10:00 | Day surgery (SDC) | payer MEDICARE, BC ==
[2019-12-23] MEDS ORDERED: LIDOcaine 2% 5ml jelly ONE (10:27)
== END 2019-12-23 11:19 | disposition home or self-care (01) ==
LOC: WOUND CARE 10:00
PROVIDERS: ATTEND Nurse Practitioner
DX: T81.32XD Disruption of internal operation (surgical) wound, not elsewhere classified, subsequent encounter (principal); T83.728 Exposure of other implanted mesh into organ or tissue; L98.492 Non-pressure chronic ulcer of skin of other sites with fat layer exposed; I12.0 Hypertensive chronic kidney disease with stage 5 chronic kidney disease or end stage renal disease; N18.6 End stage renal disease; D63.1 Anemia in chronic kidney disease; K80.80 Other cholelithiasis without obstruction; K82.A1 Gangrene of gallbladder in cholecystitis; K21.9 Gastro-esophageal reflux disease without esophagitis; E87.1 Hypo-osmolality and hyponatremia; Q61.3 Polycystic kidney, unspecified; Z90.710 Acquired absence of both cervix and uterus; Z90.49 Acquired absence of other specified parts of digestive tract; Z94.0 Kidney transplant status; Z79.01 Long term (current) use of anticoagulants; Z93.3 Colostomy status; Z99.2 Dependence on renal dialysis; Z79.899 Other long term (current) drug therapy; Y83.8 Other surgical procedures as the cause of abnormal reaction of the patient, or of later complication, without mention of misadventure at the time of the procedure; Y83.2 Surgical operation with anastomosis, bypass or graft as the cause of abnormal reaction of the patient, or of later complication, without mention of misadventure at the time of the procedure
CPT/HCPCS: 97597

== ENCOUNTER 2019-12-30 10:00 | Day surgery (SDC) | payer MEDICARE, BC ==
[2019-12-30] MEDS ORDERED: LIDOcaine 2% 5ml jelly ONE (10:14)
== END 2019-12-30 10:28 | disposition home or self-care (01) ==
LOC: WOUND CARE 10:00
PROVIDERS: ATTEND Nurse Practitioner
DX: T81.32XD Disruption of internal operation (surgical) wound, not elsewhere classified, subsequent encounter (principal); L98.492 Non-pressure chronic ulcer of skin of other sites with fat layer exposed; I12.0 Hypertensive chronic kidney disease with stage 5 chronic kidney disease or end stage renal disease; N18.6 End stage renal disease; D63.1 Anemia in chronic kidney disease; K80.80 Other cholelithiasis without obstruction; K82.A1 Gangrene of gallbladder in cholecystitis; K21.9 Gastro-esophageal reflux disease without esophagitis; E87.1 Hypo-osmolality and hyponatremia; Q61.3 Polycystic kidney, unspecified; Z90.710 Acquired absence of both cervix and uterus; Z90.49 Acquired absence of other specified parts of digestive tract; Z94.0 Kidney transplant status; Z79.01 Long term (current) use of anticoagulants; Z93.3 Colostomy status; Z99.2 Dependence on renal dialysis; Z79.899 Other long term (current) drug therapy; Y83.8 Other surgical procedures as the cause of abnormal reaction of the patient, or of later complication, without mention of misadventure at the time of the procedure
CPT/HCPCS: 97597

== ENCOUNTER 2019-12-30 14:05 | Emergency (ER) | payer MEDICARE, BC ==
[~2019-12-30] VITALS: Ht 157.5 cm; Wt 69.0 kg
[2019-12-30 14:50] LABS: BASOPHILS # (AUTO) 0.1 X10'3 (0-0.2); EOSINOPHILS % (AUTO) 0.4 % (0-6); HEMATOCRIT 38.7 % (35.0-45.0); HEMOGLOBIN 12.3 g/dl (12.0-16.0); LYMPHOCYTES # (AUTO) 1.2 X10'3 (1.1-4.8); LYMPHOCYTES % (AUTO) 15.1 % (21-51); MEAN CORPUSCULAR HEMOGLOBIN 30.3 PG (27.0-31.0); MEAN CORPUSCULAR HGB CONC 31.9 g/dL (33.0-36.5); MEAN CORPUSCULAR VOLUME 95.1 FL (78-98); MEAN PLATELET VOLUME 7.7 FL (7.4-10.4); MONOCYTES # (AUTO) 0.3 X10'3 (0-0.9); MONOCYTES % (AUTO) 4.3 % (2-12); NEUTROPHILS # (AUTO) 6.2 X10'3 (1.8-7.7); NEUTROPHILS % (AUTO) 79.2 % (42-75); PLATELET COUNT 225 X10'3 (140-440); RED BLOOD COUNT 4.07 X10'6 (4.20-5.60); RED CELL DISTRIBUTION WIDTH 14.7 % (11.5-14.5); WHITE BLOOD COUNT 7.8 X10'3 (4.5-11.0)
[2019-12-30 15:17] LABS: ALANINE AMINOTRANSFERASE 20 U/L (12-78); ALBUMIN 3.4 G/DL (3.4-5.0); ALKALINE PHOSPHATASE 75 IU/L (46-116); ANION GAP 11 (8-16); ASPARTATE AMINO TRANSFERASE 16 U/L (10-37); BILIRUBIN,TOTAL 0.2 MG/DL (0.1-1.0); BLOOD UREA NITROGEN 28 MG/DL (7-18); BUN/CREATININE RATIO 15.1 (6.6-38.0); CALCIUM 10.2 MG/DL (8.5-10.1); CHLORIDE 105 MMOL/L (99-107); CREATININE 1.86 MG/DL (0.40-0.90); GLUCOSE 190 MG/DL (70-104); LIPASE 87 U/L (73-393); POTASSIUM 4.9 MMOL/L (3.5-5.1); SODIUM 136 MMOL/L (135-145); TOTAL PROTEIN 6.8 G/DL (6.4-8.2); eGFR 27 ML/MIN
[2019-12-30 15:35] LABS: CLARITY,URINE CLEAR (Clear); COLOR,URINE YELLOW (Yellow); GLUCOSE, URINE NEGATIVE (Neg); KETONES,URINE NEGATIVE (Neg); LEUKOCYTE ESTERASE ,URINE TRACE (Neg); NITRITES, URINE NEGATIVE (Neg); OCCULT BLOOD,URINE NEGATIVE (Neg); PROTEIN,URINE NEGATIVE (Neg); UROBILINOGEN,URINE 0.2 E.U/dL (0.2-1.0)
[2019-12-30 15:49] LABS: UA COLLECTION TYPE CLN CATCH MIDSTREAM
[2019-12-30 15:52] LABS: SQUAMOUS EPITHELIAL CELL,UR FEW /LPF (FEW)
[2019-12-30 15:57] LABS: RBC,URINE 0-2 /HPF (0-2); WBC,URINE 0-4 /HPF (0-4)
[2019-12-30 15:58] LABS: BACTERIA,URINE NONE SEEN /HPF (Neg); URIC ACID CRYSTALS 2+ /HPF (NEGATIVE)
[2019-12-30 18:21] VITALS: BP 128/81
== END 2019-12-30 18:23 | disposition home or self-care (01) ==
LOC: ER 14:06
DX: M54.5 Low back pain (principal); N18.9 Chronic kidney disease, unspecified; R10.9 Unspecified abdominal pain; Z90.710 Acquired absence of both cervix and uterus; Z98.890 Other specified postprocedural states; Z88.5 Allergy status to narcotic agent; Z79.01 Long term (current) use of anticoagulants; Z79.899 Other long term (current) drug therapy
CPT/HCPCS: 36415; 80053; 81001; 83690; 85025; 87088; 99283

== ENCOUNTER 2020-01-06 11:00 | Day surgery (SDC) | payer MEDICARE, BC ==
[2020-01-06] MEDS ORDERED: LIDOcaine 2% 5ml jelly ONE (11:48)
== END 2020-01-06 12:08 | disposition home or self-care (01) ==
LOC: WOUND CARE 11:00
PROVIDERS: ATTEND Nurse Practitioner
DX: T81.32XD Disruption of internal operation (surgical) wound, not elsewhere classified, subsequent encounter (principal); T83.728 Exposure of other implanted mesh into organ or tissue; L98.492 Non-pressure chronic ulcer of skin of other sites with fat layer exposed; I12.0 Hypertensive chronic kidney disease with stage 5 chronic kidney disease or end stage renal disease; N18.6 End stage renal disease; D63.1 Anemia in chronic kidney disease; K80.80 Other cholelithiasis without obstruction; K82.A1 Gangrene of gallbladder in cholecystitis; K21.9 Gastro-esophageal reflux disease without esophagitis; E87.1 Hypo-osmolality and hyponatremia; Q61.3 Polycystic kidney, unspecified; Z90.710 Acquired absence of both cervix and uterus; Z90.49 Acquired absence of other specified parts of digestive tract; Z94.0 Kidney transplant status; Z79.01 Long term (current) use of anticoagulants; Z93.3 Colostomy status; Z99.2 Dependence on renal dialysis; Z79.899 Other long term (current) drug therapy; Y83.8 Other surgical procedures as the cause of abnormal reaction of the patient, or of later complication, without mention of misadventure at the time of the procedure; Y83.1 Surgical operation with implant of artificial internal device as the cause of abnormal reaction of the patient, or of later complication, without mention of misadventure at the time of the procedure
CPT/HCPCS: 97597

== ENCOUNTER 2020-01-13 10:16 | Day surgery (SDC) | payer MEDICARE, BC ==
[2020-01-13] MEDS ORDERED: LIDOcaine 2% 5ml jelly ONE (10:31)
== END 2020-01-13 10:59 | disposition home or self-care (01) ==
LOC: WOUND CARE 10:16
PROVIDERS: ATTEND Nurse Practitioner
DX: T87.89 Other complications of amputation stump (principal); E11.622 Type 2 diabetes mellitus with other skin ulcer; L89.893 Pressure ulcer of other site, stage 3; L89.891 Pressure ulcer of other site, stage 1; L97.112 Non-pressure chronic ulcer of right thigh with fat layer exposed; E11.52 Type 2 diabetes mellitus with diabetic peripheral angiopathy with gangrene; I96 Gangrene, not elsewhere classified; E11.40 Type 2 diabetes mellitus with diabetic neuropathy, unspecified; M19.90 Unspecified osteoarthritis, unspecified site; K21.9 Gastro-esophageal reflux disease without esophagitis; I48.91 Unspecified atrial fibrillation; J44.9 Chronic obstructive pulmonary disease, unspecified; I10 Essential (primary) hypertension; E78.00 Pure hypercholesterolemia, unspecified; E78.5 Hyperlipidemia, unspecified; I25.10 Atherosclerotic heart disease of native coronary artery without angina pectoris; F41.9 Anxiety disorder, unspecified; Z95.1 Presence of aortocoronary bypass graft; Z98.1 Arthrodesis status; Z86.73 Personal history of transient ischemic attack (TIA), and cerebral infarction without residual deficits; Z95.818 Presence of other cardiac implants and grafts; Z79.899 Other long term (current) drug therapy; Z85.828 Personal history of other malignant neoplasm of skin; Y83.8 Other surgical procedures as the cause of abnormal reaction of the patient, or of later complication, without mention of misadventure at the time of the procedure
CPT/HCPCS: 97597

== ENCOUNTER 2020-01-20 10:30 | Day surgery (SDC) | payer MEDICARE, BC ==
[2020-01-20] MEDS ORDERED: LIDOcaine 2% 5ml jelly ONE (10:46)
== END 2020-01-20 11:17 | disposition home or self-care (01) ==
LOC: WOUND CARE 10:30
PROVIDERS: ATTEND Nurse Practitioner
DX: T81.32XD Disruption of internal operation (surgical) wound, not elsewhere classified, subsequent encounter (principal); T83.728 Exposure of other implanted mesh into organ or tissue; L98.492 Non-pressure chronic ulcer of skin of other sites with fat layer exposed; I12.0 Hypertensive chronic kidney disease with stage 5 chronic kidney disease or end stage renal disease; N18.6 End stage renal disease; D63.1 Anemia in chronic kidney disease; K80.80 Other cholelithiasis without obstruction; K82.A1 Gangrene of gallbladder in cholecystitis; K21.9 Gastro-esophageal reflux disease without esophagitis; E87.1 Hypo-osmolality and hyponatremia; Q61.3 Polycystic kidney, unspecified; Z90.710 Acquired absence of both cervix and uterus; Z90.49 Acquired absence of other specified parts of digestive tract; Z94.0 Kidney transplant status; Z79.01 Long term (current) use of anticoagulants; Z93.3 Colostomy status; Z99.2 Dependence on renal dialysis; Z79.899 Other long term (current) drug therapy; Y83.8 Other surgical procedures as the cause of abnormal reaction of the patient, or of later complication, without mention of misadventure at the time of the procedure; Y83.2 Surgical operation with anastomosis, bypass or graft as the cause of abnormal reaction of the patient, or of later complication, without mention of misadventure at the time of the procedure
CPT/HCPCS: 97597

== ENCOUNTER 2020-01-27 10:00 | Day surgery (SDC) | payer MEDICARE, BC ==
[2020-01-27] MEDS ORDERED: LIDOcaine 2% 5ml jelly ONE (10:28)
== END 2020-01-27 10:46 | disposition home or self-care (01) ==
LOC: WOUND CARE 10:00
PROVIDERS: ATTEND Nurse Practitioner
DX: T81.32XD Disruption of internal operation (surgical) wound, not elsewhere classified, subsequent encounter (principal); T83.728 Exposure of other implanted mesh into organ or tissue; L98.492 Non-pressure chronic ulcer of skin of other sites with fat layer exposed; I12.0 Hypertensive chronic kidney disease with stage 5 chronic kidney disease or end stage renal disease; N18.6 End stage renal disease; D63.1 Anemia in chronic kidney disease; K80.80 Other cholelithiasis without obstruction; K82.A1 Gangrene of gallbladder in cholecystitis; K21.9 Gastro-esophageal reflux disease without esophagitis; E87.1 Hypo-osmolality and hyponatremia; Q61.3 Polycystic kidney, unspecified; Z90.710 Acquired absence of both cervix and uterus; Z90.49 Acquired absence of other specified parts of digestive tract; Z94.0 Kidney transplant status; Z79.01 Long term (current) use of anticoagulants; Z93.3 Colostomy status; Z99.2 Dependence on renal dialysis; Z79.899 Other long term (current) drug therapy; Y83.8 Other surgical procedures as the cause of abnormal reaction of the patient, or of later complication, without mention of misadventure at the time of the procedure; Y83.2 Surgical operation with anastomosis, bypass or graft as the cause of abnormal reaction of the patient, or of later complication, without mention of misadventure at the time of the procedure
CPT/HCPCS: 97597

== ENCOUNTER 2020-02-03 09:43 | Day surgery (SDC) | payer MEDICARE, BC ==
[2020-02-03] MEDS ORDERED: LIDOcaine 2% 5ml jelly ONE (10:07)
== END 2020-02-03 10:30 | disposition home or self-care (01) ==
LOC: WOUND CARE 09:43
PROVIDERS: ATTEND Nurse Practitioner
DX: T81.32XD Disruption of internal operation (surgical) wound, not elsewhere classified, subsequent encounter (principal); T83.728 Exposure of other implanted mesh into organ or tissue; L98.492 Non-pressure chronic ulcer of skin of other sites with fat layer exposed; I12.0 Hypertensive chronic kidney disease with stage 5 chronic kidney disease or end stage renal disease; N18.6 End stage renal disease; D63.1 Anemia in chronic kidney disease; K80.80 Other cholelithiasis without obstruction; K82.A1 Gangrene of gallbladder in cholecystitis; K21.9 Gastro-esophageal reflux disease without esophagitis; E87.1 Hypo-osmolality and hyponatremia; Q61.3 Polycystic kidney, unspecified; Z90.710 Acquired absence of both cervix and uterus; Z90.49 Acquired absence of other specified parts of digestive tract; Z94.0 Kidney transplant status; Z79.01 Long term (current) use of anticoagulants; Z93.3 Colostomy status; Z99.2 Dependence on renal dialysis; Z79.899 Other long term (current) drug therapy; Y83.8 Other surgical procedures as the cause of abnormal reaction of the patient, or of later complication, without mention of misadventure at the time of the procedure; Y83.2 Surgical operation with anastomosis, bypass or graft as the cause of abnormal reaction of the patient, or of later complication, without mention of misadventure at the time of the procedure
CPT/HCPCS: 97597

== ENCOUNTER 2021-06-25 11:48 | Emergency (ER) | payer MEDICARE, BC ==
[~2021-06-25] VITALS: Ht 157.5 cm; Wt 76.2 kg
[~2021-06-25 11:48] MED LIST changes: -APIX5TAB3 PO; +NITR50CA PO; -PRE5T PO; +PRED5TAB PO
[2021-06-25 12:01] VITALS: BP 146/102
[2021-06-25 12:52] LABS: CLARITY,URINE TURBID (Clear); COLOR,URINE YELLOW (Yellow); GLUCOSE, URINE 100 mg/dl (Neg); KETONES,URINE NEGATIVE (Neg); LEUKOCYTE ESTERASE ,URINE MODERATE (Neg); NITRITES, URINE POSITIVE (Neg); OCCULT BLOOD,URINE SMALL (Neg); PH,URINE 5.5 (4.8-8.0); PROTEIN,URINE 30 mg/dl (Neg); UROBILINOGEN,URINE 0.2 E.U/dL (0.2-1.0)
[2021-06-25 12:55] LABS: UA COLLECTION TYPE CLN CATCH MIDSTREAM
[2021-06-25 13:02] LABS: BACTERIA,URINE 2+ /HPF (Neg); SQUAMOUS EPITHELIAL CELL,UR FEW /LPF (FEW); WBC,URINE TNTC /HPF (0-4)
[2021-06-25] MEDS ORDERED: CEPH250T PO (13:32)
== END 2021-06-25 13:48 | disposition home or self-care (01) ==
LOC: ER 11:48
DX: N39.0 Urinary tract infection, site not specified (principal); I12.9 Hypertensive chronic kidney disease with stage 1 through stage 4 chronic kidney disease, or unspecified chronic kidney disease; N18.6 End stage renal disease; Z87.19 Personal history of other diseases of the digestive system; Z90.5 Acquired absence of kidney; Z90.710 Acquired absence of both cervix and uterus; Z88.5 Allergy status to narcotic agent; Z79.2 Long term (current) use of antibiotics; Z79.899 Other long term (current) drug therapy
CPT/HCPCS: 81001; 87088; 99283